=== PATIENT | female | born 1975 | race Caucasian/White ===

== ENCOUNTER 2018-12-28 18:02 | Emergency (ER) | payer OTHER ==
[~2018-12-28] VITALS: Ht 157.5 cm; Wt 54.4 kg
[2018-12-28] MEDS ORDERED: LO LOESTRIN FE1 EACH PO (18:19)
[2018-12-28 19:21] VITALS: BP 125/80
== END 2018-12-28 19:22 | disposition home or self-care (01) ==
LOC: M.ERS 18:02
DX: S61.213A Laceration without foreign body of left middle finger without damage to nail, initial encounter (principal); W26.8XXA Contact with other sharp object(s), not elsewhere classified, initial encounter; Y92.89 Other specified places as the place of occurrence of the external cause; Y93.89 Activity, other specified; Y99.8 Other external cause status